=== PATIENT | female | born 1970 | race Caucasian/White ===

== ENCOUNTER 2016-05-04 07:05 | Emergency (ER) | payer OTHER ==
[2016-05-04 07:58] VITALS: BP 106/54
--- NOTE | 2016-05-04 08:20 | RAD ---
HISTORY: Tender radial head and lateral epicondyle of left elbow after fall COMPARISONS: None VIEWS: There, Frontal, lateral, and oblique views of the left elbow FINDINGS: BONE DENSITY: Normal. BONES: There is no displaced fracture. 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 There is no posterior supracondylar fat pad to suggest a joint effusion. ALIGNMENT: There is no dislocation. SOFT TISSUES: Unremarkable. OTHER FINDINGS: None. IMPRESSION: NO ACUTE OSSEOUS INJURY. IF SYMPTOMS PERSIST, RECOMMEND REPEAT IMAGING.
--- NOTE | 2016-05-04 08:25 | RAD ---
INDICATION: Left shoulder injury COMPARISON: None TECHNIQUE: Routine frontal and Y views were obtained. FINDINGS: There is no acute bony change. 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 The glenohumeral joint is intact. There are findings of calcific tendinitis. IMPRESSION: NO ACUTE BONY FINDINGS. CALCIFIC TENDINITIS.
--- NOTE | 2016-05-04 15:41 | UC ---
Elbow Pain - HPI Summary HPI Summary: PT SLIPPED WHILE GETTING OUT OF HER CAR AT WORK LAST NIGHT AT 5PM. ELBOW AND SHOULD HIT THE BOTTOM DOOR JUMNAA OF THE CAR. ELBOW AND SHOULDER PAIN SINCE. SHARP AND ACHING. PAIN WITH MOVEMENT OF ELBOW AND SHOULDER - History of Current Complaint Chief Complaint: UCUpperExtremity Stated Complaint: LEFT SHOULDER,ELBOW (WC) Time Seen by Provider: 05/04/16 07:32 Hx Obtained From: Patient Hx Last Menstrual Period: 12/2015 ?: No Onset/Duration: Hours - 12, Still Present Severity Initially: Moderate Severity Currently: Moderate Pain Intensity: 5 Pain Scale Used: 0-10 Numeric Location Of Pain: Is Discrete @ - ELBOW AND SHOULDER Character: Sharp, Dull, Throbbing Aggravating Factor(s): Movement - AND ARM HANGING IN FULL EXTENSION Alleviating Factor(s): Rest Associated Signs And Symptoms: Negative: Swelling, Redness, Bruising, Fever, Weakness, Numbness/Tingling - Allergies/Home Medications Allergies/Adverse Reactions: Allergies Allergy/AdvReac Type Severity Reaction Status Date / Time Oxycodone [From Percocet] Allergy HALLUCINATI Verified 05/04/16 07:27 ON Home Medications: Home Medications Vitamin B Complex CAP* [B Complex CAP*] 1 cap PO DAILY 05/04/16 [History Confirmed 05/04/16] PMH/Surg Hx/FS Hx/Imm Hx Endocrine History Of: Denies: Diabetes Cardiovascular History Of: Denies: Hypertension, Pacemaker/ICD Respiratory History Of: Reports: Asthma GI/ History Of: Denies: Renal Disease - Surgical History Surgical History: Yes Surgery Procedure, Year, and Place: 3 C SECTIONS; uterine ablation 12/2012; tubal ligation 2001 - Family History Known Family History: Negative: Cardiac Disease, Hypertension, Diabetes - Social History Occupation: Employed Full-time Lives: With Family Alcohol Use: Occasionally Substance Use Type: None Smoking Status (MU): Never Smoked Tobacco - Immunization History Most Recent Tetanus Shot: PT STATES UP TO DATE, CAN'T RECALL DATE. Review of Systems Constitutional: Negative Skin: Negative Eyes: Negative ENT: Negative Respiratory: Negative Cardiovascular: Negative Gastrointestinal: Negative Genitourinary: Negative Motor: Negative Neurovascular: Negative Musculoskeletal: Arthralgia, Myalgia Neurological: Negative Psychological: Negative All Other Systems Reviewed And Are Negative: Yes Physical Exam Triage Information Reviewed: Yes Appearance: Well-Appearing, No Pain Distress, Well-Nourished Vital Signs: Initial Vital Signs Temp 99.2 F 05/04/16 07:22 Pulse 79 05/04/16 07:22 Resp 18 05/04/16 07:22 BP 106/54 05/04/16 07:22 Pulse Ox 98 05/04/16 07:22 Vital Signs Reviewed: Yes Eyes: Positive: Conjunctiva Clear. Negative: Discharge Neck exam: Normal Neck: Positive: Supple Respiratory: Positive: Lungs clear, Normal breath sounds, No respiratory distress, No accessory muscle use Cardiovascular: Positive: RRR, No Murmur Musculoskeletal: Positive: Strength Intact, ROM Intact - PAIN WITH ROM, No Edema , Other: - TENDER ACROMIUM AND LAT EPICONDYLE Neurological Exam: Normal Neurological: Positive: Alert, Muscle Tone Normal Psychological: Positive: Age Appropriate Behavior Skin Exam: Normal Elbow Pain Course/Dx - Differential Dx/Diagnosis Differential Diagnosis/HQI/PQRI: Contusion, Fracture (Closed), Sprain, Strain Provider Diagnoses: ELBOW AND SHOULDER SPRAIN, CONTUSION Discharge - Discharge Plan Condition: Stable Disposition: HOME Prescriptions: Naproxen [Naproxen 500 MG TABS] 500 mg PO BID #14 tab Patient Education Materials: How to Use a Sling (GEN), Contusion in Adults (ED) , Elbow Sprain (ED), Shoulder Sprain (ED) Forms: *Work Release Referrals: David Neil DO [Primary Care Provider] - 1 Week Additional Instructions: YOU ARE BEING GIVEN A SLING FOR COMFORT. YOU DO NOT HAVE TO WEAR IT ALL THE TIME. IF IT DOES HELP, YOU DON'T NEED IT. REMEMBER TO TAKE YOUR ARM OUT OF THE SLING SEVERAL TIMES A DAY TO MOVE THE ELBOW SO IT DOES NOT GET STIFF.
== END 2016-05-04 08:56 | disposition home or self-care (01) ==
LOC: UCCORT 07:05
DX: S43.402A Unspecified sprain of left shoulder joint, initial encounter (principal); S53.402A Unspecified sprain of left elbow, initial encounter; S40.012A Contusion of left shoulder, initial encounter; S50.02XA Contusion of left elbow, initial encounter; M75.32 Calcific tendinitis of left shoulder; W01.198A Fall on same level from slipping, tripping and stumbling with subsequent striking against other object, initial encounter; Y92.9 Unspecified place or not applicable; Z88.5 Allergy status to narcotic agent; J45.909 Unspecified asthma, uncomplicated
CPT/HCPCS: 99213; G0463

== ENCOUNTER → 2016-08-05 08:39 | Day surgery (SDC) | payer BC, OTHER ==
--- NOTE | 2016-07-28 14:42 | HP ---
PREOPERATIVE HISTORY AND PHYSICAL: DATE OF SURGERY: 08/05/16 PROCEDURE: Left shoulder arthroscopic rotator cuff repair, decompression, subpectoral biceps tenodesis and debridement. CHIEF COMPLAINT: Left shoulder pain. HISTORY OF PRESENT ILLNESS: Ms. Evans is a 46-year-old female who presents to the clinic for ongoing left shoulder pain from an injury at work due to a rotator cuff injury. She has failed conservative measures and has therefore agreed to undergo left shoulder arthroscopic rotator cuff repair, decompression , subpectoral biceps tenodesis and debridement. PAST MEDICAL HISTORY: She has a history of a pulmonary embolism after a C- section, asthma, high cholesterol, arthritis, colitis, celiac disease, and fibromyalgia. PAST SURGICAL HISTORY: C-sections in 1996, 1998, and 2000. Uterine ablation in 2012. D and C in 1995. She denies prior complications with anesthesia. MEDICATIONS: Advil 200 mg as needed. ALLERGIES: GLUTEN and OXYCODONE. FAMILY HISTORY: Dad has a history of diabetes. Brother with heart disease and thyroid disease. Mom with high blood pressure. Brother with syndrome. Paternal aunt and uncle and sisters with cancer. SOCIAL HISTORY: She lives with her spouse. 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 She denies tobacco or alcohol use. She is right hand dominant. REVIEW OF SYSTEMS: A 14-point review of systems was reviewed with the patient, positive for current complaint, otherwise negative. Denies chest pain, shortness of breath, history of bleeding disorder, DVT, or complications with anesthesia. Positive for pulmonary embolism after . Has had uterine ablation since without prophylactic treatment and has done well. PHYSICAL EXAMINATION GENERAL: Well-developed, well-nourished 46-year-old female in no acute distress. VITAL SIGNS: Height 6 feet, weight 100. Pulse 72, blood pressure 126/76, respiratory rate 16. BMI 19.5. HEENT: Normocephalic and atraumatic. NECK: Supple. Throat clear. PULMONARY: Lungs are clear to auscultation bilaterally. No wheezing, rhonchi, or rales. CARDIOVASCULAR: Regular rate and rhythm. S1 and S2. No murmurs, gallops, or rubs. No edema. ABDOMEN: Positive bowel sounds, soft, nontender. NEUROLOGIC: Alert and oriented x3. Cranial nerves grossly intact. Sensation intact to light touch. MUSCULOSKELETAL: Left upper extremity skin is intact. Tenderness to palpation noted in biceps and subacromial space. Forward flexion to 90, possibly to 120. Active abduction 120, external rotation to 45, internal rotation into the lumbar spine. Positive Lacey, Kev, Speed's, Neer and Waldo. +4/5 strength to rotator cuff testing, +2 radial pulse. Sensation intact to light touch distally. STUDIES: MRI of the left shoulder reveals fluid in the bicipital groove and partial thickness tear at the supraspinatus tendon. IMPRESSION: Right shoulder rotator cuff tear and a biceps tendonitis. PLAN: The patient is here to undergo a left shoulder arthroscopic rotator cuff repair, decompression, subpectoral biceps tenodesis and debridement with Dr. Solorzano on 08/05/16. She has a history of pulmonary embolism and has had surgery since without complications. DVT and PE prophylaxis will be considered postoperatively. She will return to the office 10 to 14 days postop for followup and suture removal. Prescription for [place] was e-prescribed to the patient's pharmacy. She was also given a script for Keflex to use for antibiotic prophylaxis. GABRIELLA CASTELLANOS [id number]/[facility] #: [id number] ELVIS
[~2016-08-05 08:39] MED LIST: Buffered Lidocaine 1% SYRIN* 3 ML/SYR SYRINGE INTRADERM ONE; Bupivacaine 0.25% EPI 200,000* 30 ML SDV ONE; Dexamethasone IV* 4 MG/ML 1 ML (4 MG) ONE; Ketorolac INJ* 30 MG/ML 1 ML VIAL IV PRN; Lidocaine 2% PF* 5 ML VIAL ONE; Midazolam* 1 MG/ML 2 ML VIAL (2 MG) ONE; Ondansetron INJ* 2 MG/ML VIAL IV PRN; Ondansetron INJ* 2 MG/ML VIAL ONE; Propofol* 10 MG/ML 20 ML BTL IV PUSH ONE; ROPIVACAINE 5 MG/ML 30 ML BTL (0.5%) ONE; Sodium Citrate/Citric Acid* 15 ML UDC ONE; Sodium Citrate/Citric Acid* 15 ML UDC PO ONE; ceFAZolin 2 GM PREMIX(*) 2 GM/50 ML BAG IVPB ONE; fentaNYL* 50 MCG/ML 2 ML VIAL (100 MCG VIAL) IV PRN; fentaNYL* 50 MCG/ML 2 ML VIAL (100 MCG VIAL) ONE
[2016-08-05 12:45] VITALS: BP 133/69
--- NOTE | 2016-08-06 12:44 | OP ---
DATE OF OPERATION: 08/05/16 - [facility] DATE OF : 68 ATTENDING SURGEON: Kyle Solorzano MD CUPOLA TENDER: GABRIELLA Martin ANESTHESIOLOGIST: Blaine Waller DO ANESTHESIA: General with interscalene block. PRE-OP DIAGNOSES: Left shoulder partial thickness rotator cuff tear, bicipital tendinitis. POST-OP DIAGNOSES: Left shoulder partial thickness rotator cuff tear, bicipital tendinitis. OPERATIVE PROCEDURE: 1. Left shoulder arthroscopy with extensive glenohumeral debridement including biceps tenotomy and debridement of the subscapularis. 2. Subacromial decompression with acromioplasty. 3. Arthroscopic rotator cuff repair in double-row fashion. INDICATIONS: Nishi Evans is a 46-year-old female who sustained a worked- related injury to her left shoulder. She has failed conservative management including physical therapy injections and was unable to get back to work at her previous position. After significant discussion, she has elected to proceed with surgery. Risks and benefits were discussed that included but were not limited to bleeding, infection, damage to nerve vessels, surrounding structures , the wound not healing, need for surgery, stiffness, persistent pain, failure of the repair, incomplete relieved of system, scarring, risk of DVT, and risk of anesthesia. She has elected to proceed. IMPLANTS: One HEALICOIL and one MULTIFIX. COMPLICATIONS: None. ESTIMATED BLOOD LOSS: Minimal. DESCRIPTION OF PROCEDURE: The patient was greeted in the preoperative area by the attending surgeon. Correct extremity was marked and the consent was confirmed. The patient was then brought back to the operative suite, where she was placed in supine position on the operating table. She then underwent interscalene nerve block, which she tolerated without difficulty. After which the patient underwent general anesthesia and LMA intubation. The patient was then placed in the right lateral decubitus position with an axillary roll and all bony prominences were padded. She was supported with a peg board. The left arm was then draped unsterile from the traction frame with 10 pounds of traction. The left shoulder was then prepped and draped in the usual sterile fashion beginning with chlorhexidine, soap scrub, and alcohol wipe and a final prep with ChloraPrep. After appropriate surgical pause indicating site, side, procedure, administration of antibiotics; the standard posterolateral portal was made using the 11 blade. The scope was introduced into the joint and the joint was examined. The glenohumeral joint had grade 0 to 1 changes. The anterior, posterior labrum had unstable fraying. The superior labrum had type 2 tear with the biceps instability. The undersurface of the subscap pad, partial thickness tearing but is less than 5% and it was found to be down to due to her biceps. The undersurface of the rotator cuff had significant tearing, high- grade partial thickness tearing which maybe 15% to 20%. The anterior portals were made in an outside-in fashion. The shaver was used to debride the undersurface of the subscap. The biceps was taken through the range of motion and then tenotomized using endoscopic biters. The shaver was used to debride the anterior, posterior, superior labrum, and the undersurface of the supraspinatus tendon as well. Once the debridement was complete, an 18-gauge needle was placed in the center of the tendon to gerri it for possible fixing later. As it was probed, it was found to be very thin quality tissue. All loose fluid and debris was removed from the joint. The scope was placed in the subacromial space and the lateral portal was made in an outside-in fashion. The shaver was brought in to debride the excessive bursa that was present. The cuff was examined and there was partial thickness bursal sided tearing at the same area of the articular sided tearing. The undersurface of the acromion was then prepared using the electrocautery device. The small 4-0 bur was then used to do an acromioplasty. All loose fluid and debris were removed from the shoulder. Attention was directed to the rotator cuff. Decision was made to repair this due to the fact that this had partial thickness tearing on the bursal end and on the articular side. The knife was used to complete the tear. The greater tuberosity was prepared in the usual fashion beginning with rasp and the electrocautery device as well as the shaver. The rotator cuff was also prepared using shaver to remove any loose unstable tissue. The scope was mobilized and found to be appropriately restored. One 4.75 HEALICOIL anchor was then placed in the medial row and the sutures were passed in horizontal mattress configuration and tied down using arthroscopic knot tying. The free ends of the sutures were then passed through a MULTIFIX anchor, which was used at the lateral row repair. This allowed for compression as well as spiritism of the rotator cuff to the footprint. The shoulder was taken through gentle range of motion and it was found to be restored. All fluid and debris was removed from the shoulder at this point after final images were obtained. The portals were closed with 3-0 nylon and sterile dressings were applied. A Cryo/ Cuff as well as an UltraSling was applied. The patient was awoken from anesthesia and transferred to the PACU in stable condition. POSTOPERATIVE PLAN: She will be nonweightbearing. She will be in a sling for 6 weeks. Allowed to work on elbow, hand, and wrist range of motion starting postop day 1. She will be discharged on pain medications. DVT prophylaxis was considered and due to her previous history of a PE, she will be on Lovenox for 10 days postop. I will see the patient back in 10 to 14 days. [id number]/[facility] #: [id number] MTDKarma
== END | disposition home or self-care (01) ==
LOC: OR 08:39
PROVIDERS: ATTEND Orthopaedic Surgery
DX: S46.012A Strain of muscle(s) and tendon(s) of the rotator cuff of left shoulder, initial encounter (principal); M75.22 Bicipital tendinitis, left shoulder; X50.0XXA Overexertion from strenuous movement or load, initial encounter; Y93.89 Activity, other specified; Y92.9 Unspecified place or not applicable; Y99.0 Civilian activity done for income or pay
CPT/HCPCS: A9270-GY; C1713; J0690; J1100; J2250; J2405; J2704; J2795; J3010

== ENCOUNTER 2019-02-11 07:44 | Emergency (ER) | payer BC ==
[2019-02-11 08:05] VITALS: BP 120/74
--- NOTE | 2019-02-11 08:07 | UC ---
Throat Pain/Nasal Kumar HPI - HPI Summary HPI Summary: Patient is a 48-year-old female presenting with nasal congestion and sore throat 8 days. Patient states nothing makes it better including allergy medications and nasal spray she is taking. She notes sinus tenderness and ear pain. Notes intermittent productive cough. Notes headaches. Also notes eyes glued shut with green discharge this morning. Denies shortness of breath and wheezing. Denies nausea vomiting and diarrhea. - History of Current Complaint Stated Complaint: SORE THROAT, EYE IRRITATION Hx Obtained From: Patient Hx Last Menstrual Period: December 2018 Onset/Duration: Gradual Onset, Lasting Days Severity: Severe Pain Intensity: 8 Pain Scale Used: 0-10 Numeric - Allergies/Home Medications Allergies/Adverse Reactions: Allergies Allergy/AdvReac Type Severity Reaction Status Date / Time gluten Allergy Celiac Verified 02/11/19 07:56 Disease, GI Upset oxycodone Allergy Hallucinati Verified 02/11/19 07:56 ons wheat Allergy Celiac Verified 02/11/19 07:56 Disease, GI Upset DUST Allergy Sneezing Uncoded 02/11/19 07:56 Home Medications: Home Medications Cyanocobalamin INJ * [Vitamin B12 INJ *] 1,000 mcg IM Q30D 02/11/19 [History Confirmed 02/11/19] DULoxetine DR CAP* [Cymbalta CAP*] 60 mg PO DAILY 02/11/19 [History Confirmed ] Fluticasone/Vilanterol MDI(NF) [Breo Ellipta MDI (NF)] 1 puff INH DAILY [History Confirmed 02/11/19] Hydroxychloroquine TAB* [Plaquenil TAB*] 200 mg PO DAILY 02/11/19 [History Confirmed 02/11/19] Ibuprofen TAB* [Advil TAB*] 600 mg PO Q6H PRN 02/11/19 [History Confirmed ] LevoCETirizine TAB (NF) [Xyzal TAB (NF)] 5 mg PO DAILY 02/11/19 [History Confirmed 02/11/19] Mometasone NASAL (NF) [Nasonex (NF)] 1 spray BOTH NARES DAILY 02/11/19 [History Confirmed 02/11/19] PMH/Surg Hx/FS Hx/Imm Hx Previously Healthy: Yes - Surgical History Surgical History: Yes Surgery Procedure, Year, and Place: Left Rotator Cuff, 2018, [place]; Uterine Ablation, 2012, [place]; , Tubal Ligation, 2001, [place]; C-Sections , 1998 1996, [place]; D&C, 1995 - Family History Known Family History: Negative: Cardiac Disease, Hypertension, Diabetes - Social History Alcohol Use: Occasionally Substance Use Type: None Smoking Status (MU): Never Smoked Tobacco - Immunization History Most Recent Tetanus Shot: 09/19/12 Review of Systems All Other Systems Reviewed And Are Negative: Yes Constitutional: Positive: Chills. Negative: Fever, Fatigue ENT: Positive: Sore Throat, Ear Ache, Sinus Congestion, Sinus Pain/Tenderness. Negative: Nasal Discharge Respiratory: Positive: Negative, Cough. Negative: Shortness Of Breath Cardiovascular: Positive: Negative Gastrointestinal: Positive: Negative. Negative: Abdominal Pain, Vomiting, Diarrhea, Nausea Genitourinary: Positive: Negative Musculoskeletal: Positive: Negative Neurological: Positive: Headache Physical Exam Triage Information Reviewed: Yes Appearance: Well-Appearing, No Pain Distress, Well-Nourished Vital Signs: Initial Vital Signs Temp 98 F 02/11/19 07:56 Pulse 88 02/11/19 07:56 Resp 16 02/11/19 07:56 BP 120/74 02/11/19 07:56 Pulse Ox 100 02/11/19 07:56 Lab Results 02/11/19 Range/Units 08:07 Group A Strep Rapid Negative (Negative) Eyes: Positive: Conjunctiva Inflamed, Discharge ENT: Positive: Hearing grossly normal, Pharyngeal erythema, Nasal congestion, Nasal drainage - PND, TMs normal, Tonsillar swelling, Sinus tenderness, Uvula midline - Bilateral maxillary sinus tenderness. Negative: TM bulging, TM dull, TM red, Tonsillar exudate, Hoarse voice Neck exam: Normal Neck: Positive: Supple, Nontender, No Lymphadenopathy Respiratory Exam: Normal Respiratory: Positive: Lungs clear, Normal breath sounds, No respiratory distress, No accessory muscle use. Negative: Crackles, Rhonchi, Stridor, Wheezing Cardiovascular Exam: Normal Cardiovascular: Positive: RRR Neurological: Positive: Alert Psychological: Positive: Age Appropriate Behavior Throat Pain/Nasal Course/Dx - Course Course Of Treatment: Patient's rapid strep test was negative. I am treating the patient with Polytrim for bilateral conjunctivitis. Also treating her with amoxicillin for sinusitis. Instructed patient to continue nasal spray can also use over-the- counter throat sprays for symptomatic relief. Instructed her to also continue taking ibuprofen as directed for pain relief. Instructed her to follow up with her PCP if symptoms persist. Patient voiced understanding and agreed with treatment plan. - Differential Dx/Diagnosis Provider Diagnosis: Bacterial conjunctivitis of both eyes Discharge ED - Sign-Out/Discharge Documenting (check all that apply): Patient Departure All imaging exams completed and their final reports reviewed: No Studies - Discharge Plan Condition: Stable Disposition: HOME Prescriptions: Amoxicillin PO (*) [Amoxicillin 500 MG CAP*] 500 mg PO TID #15 cap Polymyx/Trimethoprim OPTH* [Polytrim OPHTH*] 1 drop BOTH EYES Q3H 7 Days #1 btl Patient Education Materials: Conjunctivitis (ED) Referrals: Beatrice Cramer MD [Primary Care Provider] - If Needed Additional Instructions: Use the Polytrim eye drops for treatment of your bacterial conjunctivitis. As discussed, take Amoxicillin as prescribed for treatment of sinusitis. You may continue to use nasal spray and over the counter throat sprays as directed for symptomatic relief. You may continue to take ibuprofen as directed for pain relief. Get plenty of rest and fluids. Return or follow up with your primary care doctor if your symptoms worsen or do not resolve within 7 days. - Billing Disposition and Condition Condition: STABLE Disposition: Home - Attestation Statements Provider Attestation: I was available for consult. This patient was seen by the YOUNG. The patient was not presented to, seen by, or examined by me. -Raymundo
== END 2019-02-11 08:40 | disposition home or self-care (01) ==
LOC: UCCORT 07:44
DX: H10.9 Unspecified conjunctivitis (principal); B96.89 Other specified bacterial agents as the cause of diseases classified elsewhere; J02.9 Acute pharyngitis, unspecified; H92.09 Otalgia, unspecified ear; R51 Headache; R68.83 Chills (without fever); R09.81 Nasal congestion; Z88.5 Allergy status to narcotic agent; Z91.018 Allergy to other foods; Z91.09 Other allergy status, other than to drugs and biological substances
CPT/HCPCS: 87651; 99212; G0463